=== PATIENT | female | born 1950 | race Caucasian/White ===

== ENCOUNTER 2016-05-06 09:02 | Emergency (ER) | payer MEDICARE ==
[~2016-05-06] VITALS: Ht 167.6 cm; Wt 101.8 kg
[2016-05-06 09:16] VITALS: BP 137/82; PULSE 80; RESP 22; O2SAT 93
--- NOTE | 2016-05-06 09:21 | ED.REPORT ---
HPI-Back Pain 40 and Over Date of Service May 06, 2016 ED Provider: Chet Bone MD Pt is a 66 y/o female w/ a hx of chronic pain and opioid dependence, presenting to the ED c/o lumbar back pain with radiation to the left leg onset this morning. The pt had a fall 1 year ago causing her chronic left leg of unclear etiology. Her pain today has radiated into her left lumbar back today. She is being prescribed chronic Oxycodone q6h after her injury for her chronic pain but ran out today. She attempted to call her PCP but they were out of the office so she was unable to get her script refilled. Her goal for this visit is pain control. Pt denies numbness, weakness, bowel or bladder incontinence, fever , chills. Of note, review of [facility] reports shows that she was seen at another emergency department yesterday for the same symptoms asking for a medication refill. Nursing Notes Stated Complaint: LOWER BACK PAIN/LEG PAIN Chief Complaint: Back Pain or Injury Nursing Notes Reviewed: Yes Allergies: Coded Allergies: amoxicillin (Verified Allergy, Severe, 05/06/16) latex (Verified Allergy, Severe, 05/06/16) General Time Seen by MD: 09:14 Chief Complaint Lumbar pain Hx Obtained From: Patient Arrived By: Walk-in Sudden in Onset?: No Onset Occurred: 1 - 4 hours ago Symptom Duration: Since onset Location: : Perispinal lumbar Quality: Painful Severity: Current: Moderate Severity: Maximum: Moderate Similar Sx Previous: Yes Past Medical History Past Medical History Chronic pain on Oxycodone CHF Smoking History Unknown if Ever Smoker Ambulatory Status Independent Review of Systems Constitutional: Denies: Chills, Fever Musculoskeletal: Reports: Extremity pain, Lumbar pain Neurologic: Denies: Bladder dysfunction, Bowel dysfunction, Numbness, Weakness Complete sys rev & neg: except as marked. Physical Exam Initial Vital Signs Vital Signs (First) Date Time Temp Pulse Resp B/P Pulse Ox O2 Delivery O2 Flow Rate FiO2 05/06/16 09:16 36.6 80 22 137/82 93 Room Air Initial VS: Reviewed, Vital signs abnormal Head / Eyes: Atraumatic, Normocephalic, PERRL ENT: Mucous membranes moist, Conjunctiva normal, No scleral icterus Neck: Supple, Full range of motion Skin: Warm, Dry, No cyanosis Psychiatric: Mood/affect normal, Behavior normal, Normal thought content General/Constitutional: Awake, Alert, No acute distress, Cooperative, Not toxic appearing Appearance / Presentation: Positive: Uncomfortable Respiratory / Chest: Atraumatic, Breath sounds NL, Breath sounds = bilat, No respiratory distress, No rales, No rhonchi, No wheezing, No retractions, No stridor, No chest tenderness, No chest wall deformity, No crepitus Cardiovascular: Heart rate NL, Regular rhythm, Heart sounds NL, No gallop, No murmurs, No rubs, Cap refill not delayed, Peripheral circulation NL Abdomen: Atraumatic, Soft, Non-tender, No guarding, No rebound Back: Full range of motion, Painless range of motion Diffuse tenderness about entire lumbar paraspinal region No sadal anesthesia Neurologic: Oriented X3, Speech NL, No motor deficits, No sensory deficits, CN II - XII intact, Reflexes equal bilat, Cerebellar NL, Memory NL Re-Eval/Medical Decision Med Decision/Clinical Course In summary, the patient is a 66-year-old female with a history of chronic back and left leg pain as well as opiate dependence, who presents with back pain exacerbation and opiate withdrawal symptoms in the setting of running out of her oxycodone. Our primary and secondary assessment reveals an awake, alert patient in no acute distress. Hemodynamically stable and afebrile. Exam reveals normal neurologic exam of the lower extremities. Given this immunocompetent, afebrile, patient's history and exam, suspect muscle strain or spasm, that being said, the majority of her presentation seems most related to opiate withdrawal which is not surprising to me given the duration for which she has been using. Pain medication. No concerning signs or symptoms suggestive of cauda equina, cord compression, epidural abscess or other neurologic emergency. History not suggestive of referred intraabdominal pathology or vascular emergency. There is no history of significant recent trauma, fever, incontinence, unexplained weight loss, cancer history, long-term steroid use or IV drug use. And given the patient's young age, I do not feel imaging is warranted at this time. Given the patient's workup, feel they are safe for discharge with conservative management. The patient was given one 5 mg tablet of oxycodone here in the emergency room and I explained that we would not be refilling this medication and that any refills appropriate medications should be obtained through her primary care physician. Have discussed with the patient results of workup, indications for return including: motor weakness in the lower extremities and/or bowel or bladder incontinence. Also emphasized the need for PCP follow up. They understand and agree with the plan. Of note, I obtained an [facility] report after my evaluation of the patient showing that she had been seen and evaluated in an outside emergency department yesterday. The patient withheld this information from me during my evaluation. Re-Evaluation/Progress : Time of Eval: 10:18 Patient Status: Mild relief, Pain improved Re-Evaluation/Progress Note: Pt rechecked. Informed pt of plan for treatment. Pt understands and agrees with plan for treatment. F/U instructions and RTER warnings given. All questions addressed. Counseled Regarding: Diagnosis, Need for follow-up, When/why to return to ED Discharge & Departure Impression: Primary Impression: Low back pain Chronicity: chronic Back pain laterality: unspecified Sciatica presence: with sciatica presence unspecified Qualified Code: M54.5 - Low back pain Additional Impressions: Opiate dependence Substance use status: in withdrawal Qualified Code: F11.23 - Opioid dependence with withdrawal Opiate withdrawal Disposition: Home Discharge Condition All VS Reviewed: Yes Condition: Stable Patient Instructions: Acute Low Back Pain (ED) Additional Instructions: Thank you for seeking care at the emergency room. It is difficult for us to make definitive diagnoses in the ED but we believe that you are experiencing chronic pain with opiate withdrawal. Our primary goal today in the ED was to evaluate you for any life-threatening conditions. Your evaluation was reassuring. You received one dose of Oxycodone in the ER today. You should follow-up with your primary doctor in the next week. Further prescriptions need to be filled by your PCP. You should return to the ED immediately if you develop numbness, weakness, fever , vomiting, bowel or bladder incontinence, or any other concerning signs or symptoms. Thank you for letting us partake in your care today. Referrals: OTHER,PHYSICIAN (PCP) Scribe Attestation Portions of this note were transcribed by Vinnie Oviedo. I, Dr. Bone personally performed the history, physical exam and medical decision-making; I reviewed and confirmed the accuracy of the information in the transcribed note. Signed by Bogdan Valdovinos, 05/06/162158 Chet Bone MD May 06, 2016 09:21 VINNIE OVIEDO May 06, 2016 09:38
[2016-05-06] MEDS ORDERED: Ketorolac 15 mg/mL Inj IM ONE (10:55)
== END 2016-05-06 11:25 | disposition home or self-care (01) ==
LOC: SED 09:02
DX: M54.5 Low back pain (principal); F11.23 Opioid dependence with withdrawal; M79.605 Pain in left leg; W19.XXXD Unspecified fall, subsequent encounter; Y93.9 Activity, unspecified; Y92.9 Unspecified place or not applicable; Y99.8 Other external cause status; I50.9 Heart failure, unspecified; Z88.0 Allergy status to penicillin; Z91.040 Latex allergy status
CPT/HCPCS: 96372; 99283; J1885